=== PATIENT | female | born 1965 | race Caucasian/White ===

== ENCOUNTER 2017-01-02 07:30 | Inpatient (IN) | payer OTHER ==
[~2017-01-02] VITALS: Ht 170.2 cm; Wt 72.6 kg
[~2017-01-02 07:30] MED LIST: FURO-570 PO; HYDR-4446 PO; LACT10SO1 PO; MIDO5TAB PO; SPIR50TA PO
[2017-01-02 07:35] VITALS: BP 89/49
--- NOTE | 2017-01-02 07:50 | NUR ---
Patient ambulated to ER bed #7.
[2017-01-02] MEDS ORDERED: ONDANSETRON 4 MG/2 ML VIAL IVP ONE (08:05)
[2017-01-02] MEDS ORDERED: MORPHINE SULFATE 4 MG/ML SYR IVP ONE (08:05)
--- NOTE | 2017-01-02 08:10 | NUR ---
51/F bib c/o ascites-increased nausea, decreased appetite, difficult to walk. Patient states she had her last paracentesis >1 month ago. Pain 7/10 abdominal non-radiating. AAOX4, PERRLA. Breathing even and unlabored. ERMD notified of patient status.
--- NOTE | 2017-01-02 08:15 | NUR ---
Patient being evaluated by physician at bedside.
[2017-01-02 08:31] LABS: HEMATOCRIT 25.2 % (36-48); HEMOGLOBIN 8.7 g/dL (12.0-16.0); MEAN CORPUSCULAR HEMOGLOBIN 32 pg (27-31); MEAN CORPUSCULAR HGB CONC 34 g/dL (33-37); MEAN CORPUSCULAR VOLUME 92 fL (80-94); PLATELET COUNT (AUTO) 37 K/uL (140-450); RED BLOOD CELL COUNT(AUTO) 2.73 MIL/uL (4.20-5.40); RED CELL DISTRIBUTION WIDTH 13.6 % (11.6-13.7); WHITE BLOOD COUNT (AUTO) 3.1 K/uL (4.8-10.8)
[2017-01-02 08:45] LABS: ALBUMIN 2.5 g/dL (3.4-5.0); ANION GAP 13.6 (8-16); CALCIUM 8.2 mg/dL (8.5-10.1); CARBON DIOXIDE 22.5 mmol/L (21-32); CREATININE 2.5 mg/dL (0.6-1.3); POTASSIUM 4.1 mmol/L (3.5-5.1); TOTAL BILIRUBIN 0.7 mg/dL (0.0-1.0); TOTAL PROTEIN, SERUM 6.7 g/dL (6.4-8.2)
--- NOTE | 2017-01-02 09:15 | NUR ---
PT RESTING. VSS; PATIENT POSITIONED FOR COMFORT; HOB ELEVATED; BEDRAILS UP X2; BED DOWN. ER MD MADE AWARE OF PT STATUS.
[2017-01-02 09:20] LABS: BAND % (MANUAL) 1 % (0-8); EOSINOPHILS % (MANUAL) 2 % (0-4); LYMPHOCYTES % (MANUAL) 15 % (20-46); MONOCYTES % (MANUAL) 11 % (5-12); NEUTROPHILS % (MANUAL) 71 (43-65)
[2017-01-02 09:21] LABS: OVALOCYTES 1+; PLATELET ESTIMATE DECREASED
--- NOTE | 2017-01-02 09:30 | NUR ---
PT TAKEN TO CT BY RADIOLGY TECH VIA WHEELCAIR.
[2017-01-02 09:33] LABS: INR 1.7 (0.8-1.2)
--- NOTE | 2017-01-02 09:37 | NUR ---
PT RETURNED FROM RADIOLOGY VIA WHEELCHAIR WITH MATCHING MACHINE OPERATOR.
[2017-01-02] MEDS ORDERED: NACL 0.9% 500 ML IV ONE (09:55)
--- NOTE | 2017-01-02 10:36 | NUR ---
PT RESTING. VSS; PATIENT POSITIONED FOR COMFORT; HOB ELEVATED; BEDRAILS UP X2; BED DOWN. ER MD MADE AWARE OF PT STATUS.
--- NOTE | 2017-01-02 11:02 | NUR ---
Patient will be admitted to care of DR. BARRON. Admited to MED SURG. Will go to room 109B. Belongings list completed. Report to JUAN FOSTER.
[2017-01-02 11:30] VITALS: BP 90/52
--- NOTE | 2017-01-02 11:30 | NUR ---
RECEIVED PT ON UNIT, PT IS A/OX4, AMBULATORY, IV IS ON THE LEFT AC, PATENT, INTACT, FLUSHING WELL, SKIN IS INTACT, NO S/S OF RESPIRATORY DISTRESS OR DISCOMFORT NOTED, INITIAL ASSESSMENT DONE, DISCUSSED PLAN OF CARE WITH PT, PT VERBALIZED UNDERSTANDING, ORIENTED PT TO ROOM, CALL LIGHT IS WITHIN REACH, WILL CONTINUE TO MONITOR.
--- NOTE | 2017-01-02 12:09 | NUR ---
PAGED DR. BARRON FOR ADMISSION ORDERS.
--- NOTE | 2017-01-02 12:15 | NUR ---
RECEIVED A CALL BACK FROM DR. BARRON, PER DR. BARRON SHE WOULD BE ON HER WAY TO [facility] IN APPROX. 2O MIN AND WOULD PLACE ORDERS ONCE SHE WAS AT THE HOSPITAL.
[2017-01-02 12:40] LABS: APPEARANCE,URINE HAZY (CLEAR); BILIRUBIN,URINE NEGATIVE (NEGATIVE); BLOOD, URINE 2+ (NEGATIVE); COLOR,URINE YELLOW (YELLOW); LEUKOCYTE ESTERASE ,URINE NEGATIVE (NEGATIVE); NITRITE, URINE NEGATIVE (NEGATIVE); PROTEIN,URINE NEGATIVE (NEGATIVE); UGLUCOSE NEGATIVE (NEGATIVE); UROBILINOGEN,URINE 0.2 EU/dL (0.2 - 1)
[2017-01-02] MEDS ORDERED: ALBUTEROL 0.083% 2.5 MG/3 ML NEBU IH PRN (12:45)
[2017-01-02] MEDS ORDERED: LORazepam 2 MG/ML VIAL IVP PRN (12:45)
[2017-01-02] MEDS ORDERED: ACETAMINOPHEN 325 MG TAB PO PRN (12:45)
[2017-01-02] MEDS ORDERED: MORPHINE SULFATE 2 MG/ML SYR IVP PRN (12:45)
[2017-01-02 12:58] LABS: RBC,URINE 30-40 /HPF (0-5)
[2017-01-02 12:59] LABS: BACTERIA,URINE 1+ /HPF (None Seen)
--- NOTE | 2017-01-02 15:27 | NUR ---
CALLED LAB TO REQUEST THE FROZEN PLASMA. WAS TOLD IT WOULD BE READY IN APPROX. 40 MIN.
[2017-01-02 16:00] VITALS: BP 78/42
--- NOTE | 2017-01-02 17:20 | NUR ---
RECEIVED PHONE CALL FROM LAB LETTING ME KNOW PLASMA WAS READY TO BE PICKED UP.
--- NOTE | 2017-01-02 17:36 | NUR ---
FROZEN PLASMA HUNG AND INITIATED, NO S/S OF RESPIRATORY DISTRESS OR DISCOMFORT NOTED, CALL LIGHT IS WITHIN REACH, WILL CONTINUE TO MONITOR.
--- NOTE | 2017-01-02 17:51 | NUR ---
PT RESTING IN BED, WATCHING TV, NO S/S OF RESPIRATORY DISTRESS OR DISCOMFORT NOTED, CALL LIGHT WITHIN REACH, WILL CONTINUE TO MONITOR.
--- NOTE | 2017-01-02 19:20 | NUR ---
ENDORSED PT TO NIGHTSHIFT NURSE FOR CONTINUITY OF CARE. PT STABLE AT THIS TIME.
--- NOTE | 2017-01-02 19:30 | NUR ---
ASSUMED CARE OF PATIENT, AWAKE, ALERT AND ORIENTED FIRST UNIT OF FFP. VITAL SIGNS STABLE. NO COMPLAINS. CALL LIGHT WITHIN REACH.
--- NOTE | 2017-01-02 19:55 | NUR ---
PLAN OF CARE DISCUSSED WITH PATIENT, VERBALIZED UNDERSTANDING WELL. FIRST UNIT OF FFP, INFUSED. NO TRANSFUSION REACTION NOTED. AFEBRILE. VITAL SIGNS STABLE. CALL LIGHT WITHIN REACH.
--- NOTE | 2017-01-02 20:15 | NUR ---
SECOND UNIT OF FFP STARTED. CALL LIGHT WITHIN REACH.
[2017-01-02] MEDS: MIDODRINE 5 MG TAB PO SCH (20:44)
--- NOTE | 2017-01-02 21:55 | NUR ---
SECOND UNIT OF PRBC COMPLETED. NO TRANSFUSION REACTION NOTED. CALL LIGHT WITHIN REACH.
[2017-01-02 22:15] VITALS: BP 88/46
[2017-01-02] MEDS: HYDROcodone/APAP 5/325 MG 1 TAB TAB PO PRN (23:13)
[2017-01-03 00:17] VITALS: BP 84/48
--- NOTE | 2017-01-03 00:23 | NUR ---
SLEEPING WELL. NO COMPLAINS. CALL LIGHT WITHIN REACH.
[2017-01-03] MEDS: MIDODRINE 5 MG TAB PO SCH ×3 (05:20→20:34)
[2017-01-03 06:44] LABS: ALBUMIN 2.3 g/dL (3.4-5.0); ANION GAP 13.5 (8-16); CARBON DIOXIDE 23.8 mmol/L (21-32); CREATININE 1.5 mg/dL (0.6-1.3); MAGNESIUM 1.7 mg/dL (1.8-2.4); POTASSIUM 4.3 mmol/L (3.5-5.1); TOTAL PROTEIN, SERUM 6.1 g/dL (6.4-8.2)
--- NOTE | 2017-01-03 07:13 | NUR ---
ENDORSED CARE AT BEDSIDE WITH MIRACLE MARTINEZ, PATIENT IN STABLE CONDITION.
--- NOTE | 2017-01-03 07:20 | NUR ---
RECEIVED REPORT FROM NOC.PT IS ASLEEP BUT AROUSABLE.. IV INTACT NO SX OF DISTRESS AT THIS TIME.
[2017-01-03 07:29] LABS: MEAN CORPUSCULAR HEMOGLOBIN 32 pg (27-31); MEAN CORPUSCULAR VOLUME 93 fL (80-94)
[2017-01-03 07:31] LABS: HEMATOCRIT 23.4 % (36-48); MEAN CORPUSCULAR HGB CONC 34 g/dL (33-37); RED BLOOD CELL COUNT(AUTO) 2.52 MIL/uL (4.20-5.40); RED CELL DISTRIBUTION WIDTH 13.5 % (11.6-13.7); WHITE BLOOD COUNT (AUTO) 3.1 K/uL (4.8-10.8)
[2017-01-03 07:34] LABS: PLATELET COUNT (AUTO) 31 K/uL (140-450)
--- NOTE | 2017-01-03 07:48 | NUR ---
RECEIVED LAB REPORT PLATELETS AT [address]. CALL[address] BARRON OFFICE. AWAITING TO CALL BACK.
--- NOTE | 2017-01-03 07:57 | NUR ---
PATIENT HAS BEEN SCREENED AND CATEGORIZED MODERATE NUTRITION RISK. PATIENT WILL BE SEEN WITHIN 3-5 DAYS OF ADMISSION. 01/05/17-01/07/[address]
[2017-01-03 08:00] VITALS: BP 80/65
[2017-01-03] MEDS ORDERED: MAG SULF 2000 MG/WATER PREMIX 50 ML IV SCH (08:36)
[2017-01-03 08:39] LABS: BASOPHILS % (MANUAL) 1 % (0-2); EOSINOPHILS % (MANUAL) 2 % (0-4); LYMPHOCYTES % (MANUAL) 14 % (20-46); MONOCYTES % (MANUAL) 15 % (5-12); NEUTROPHILS % (MANUAL) 68 (43-65); PLATELET ESTIMATE ADEQUATE
[2017-01-03 08:40] LABS: HYPOCHROMASIA 1+
[2017-01-03 09:01] LABS: INR 1.7 (0.8-1.2); PARTIAL THROMBOPLASTIN TIME 33.4 secs (22-35.6); PROTHROMBIN TIME 16.2 secs (10.8-13.4)
--- NOTE | 2017-01-03 09:38 | NUR ---
ADMINISTERED MAG RIDER ORDERED.
--- NOTE | 2017-01-03 10:47 | NUR ---
CM NOTE INITIAL REVIEW SENT TO [facility] FAX# [phone] [place] [phone]
--- NOTE | 2017-01-03 11:06 | NUR ---
FOLLOW UP CALL MADE SPOKE WITH KAYLEY IN THE RADIOLOGY. US WILL BE DONE TODAY FOR FLUID ASSESSMENT. SHE WILL CALL SN WHAT TIME PARACENTESIS WILL BE DONE
--- NOTE | 2017-01-03 12:30 | NUR ---
DR REYES SEEN PATIENT. ORDERED TO TRANFUSE ALBUMIN 100 ML BID. WILL START ONCE AVAILABLE. PATIENT NOTIFIED AND AGREED ON THE POC
[2017-01-03] MEDS: ONDANSETRON 4 MG/2 ML VIAL IVP PRN ×2 (12:37→20:31)
--- NOTE | 2017-01-03 12:41 | NUR ---
NAUSEA REPORTED BBY THE PATIENT. ADMINISTERED ZOFRAN ORDERED VIA IVP
--- NOTE | 2017-01-03 12:45 | NUR ---
SPOKE WITH RADIOLOGY. THEY ARE UNABLE TO PERFORM PARACENTESIS TODAY DUE TO LOW PLATELET COUNT. GOAL TO PERFORM PARACENTESIS IS AT LEAST [address]. PAG[address] BURCH. SPOKE WITH SELENA. PATIENT MADE AWARE
--- NOTE | 2017-01-03 13:23 | NUR ---
SPOKE WITH DR BURCH. NOTIFIED RE: GOAL FOR PLATELET AT 50 BEFORE PARACENTESIS TO BE MADE. MD ORDERED FOR 1 UNIT OF PLATELET PHERESIS AND TO REPEAT CBC 2 HOURS POST TRANSFUSION. CONSENT IN PLACE. CONTACTED RADIOLOGY TO NOTIFY ON THE PLAN .
--- NOTE | 2017-01-03 13:40 | NUR ---
ROUNDS MADE. NO REPORT OF NAUSEA AND VOMITING AT THIS TIME
--- NOTE | 2017-01-03 14:30 | NUR ---
MADE ROUNDS. PT IS ASLEEP
[2017-01-03] MEDS: ALBUMIN HUMAN 25% 100 ML IV SCH ×2 (14:40→21:17)
[2017-01-03 16:00] VITALS: BP 82/50
--- NOTE | 2017-01-03 16:00 | NUR ---
ALBUMIN FINISHED, NO ADVERSE REACTION. PT IS AWAKE ANDOREINTED
--- NOTE | 2017-01-03 16:13 | NUR ---
FOLLOW UP MADE ON THE PLATELETS AVAILABILITY. PLATELETS WILL BE ORDERED IN THE BLOOD BANK PER MS REYNOLDS. AWAITING
--- NOTE | 2017-01-03 17:45 | NUR ---
STARTED PATIENT ON PLATELET PHARESIS. SEE NOTES
[2017-01-03] MEDS: NACL 0.9% 500 ML IV SCH ×2 (18:17→21:15)
--- NOTE | 2017-01-03 18:39 | NUR ---
FINISHED PLATELETS TRANSFUSION WITHOUT ANY INTERACTION. PT IS AWAKE ORIENTED. VS RECORDED.
[2017-01-03] MEDS ORDERED: PHYTONADIONE 10 MG/ML AMP SUBQ SCH (18:50)
--- NOTE | 2017-01-03 19:12 | NUR ---
CONSENTS SIGNED FOR EGD. EDUCATED PT ON PROCEDURE TOMORROW. NPO AFTER MIDNIGHT SIGN IN PLACE. PENDING FOR STOOL OB. NO TRANSFUSION REACTION NOTED.
--- NOTE | 2017-01-03 19:32 | NUR ---
ENDORSED TO NURSE ALLEN FOR CONT OF CARE. PT IS EATING .NO DISTRESS AT THIS TIME
--- NOTE | 2017-01-03 19:33 | NUR ---
RECD. SITTING ON BED, EATING DINNER. AWAKE, A/OX4. RESPIRATION EVEN AND UNLABORED. IV OF NS AT 80 ML/HR INFUSING LEFT AC G22. ABDOMEN DISTENDED, WITH FAINT BOWEL SOUNDS NOTED ON ALL QUADRANTS. ON BILATERAL LEG SEQUENTIALS. PLAN OF CARE FOR THE SHIFT DISCUSSED. VERBALIZED UNDERSTANDING. DENIES PAIN 0/10.
--- NOTE | 2017-01-03 20:00 | NUR ---
Patient's Plan of Care was discussed and reviewed with CMM PROGRAMMER: ALEJNADRO VALDEZ
--- NOTE | 2017-01-03 20:31 | NUR ---
NAUSEATED, MEDICATED WITH ZOFRAN BY JUAN MENDOZA.
[2017-01-03] MEDS: HYDROcodone/APAP 5/325 MG 1 TAB TAB PO PRN (20:33)
[2017-01-03] MEDS: LACTULOSE 20 GM/30 ML UDC PO SCH (20:34)
--- NOTE | 2017-01-03 21:00 | NUR ---
RESTING COMFORTABLY IN BED, NO NAUSEA NOTED.
--- NOTE | 2017-01-03 21:30 | NUR ---
CONVERSING WITH AT THE BEDSIDE.
--- NOTE | 2017-01-03 22:00 | NUR ---
INSTRUCTED TO CALL NURSE WHEN HAVING BM FOR STOOL OCCULT BLOOD TEST. VERBALIZED UNDERSTANDING.
[2017-01-03 22:07] LABS: HEMATOCRIT 24.2 % (36-48); HEMOGLOBIN 8.1 g/dL (12.0-16.0); MEAN CORPUSCULAR HEMOGLOBIN 31 pg (27-31); MEAN CORPUSCULAR HGB CONC 33 g/dL (33-37); MEAN CORPUSCULAR VOLUME 94 fL (80-94); PLATELET COUNT (AUTO) 55 K/uL (140-450); RED BLOOD CELL COUNT(AUTO) 2.57 MIL/uL (4.20-5.40); RED CELL DISTRIBUTION WIDTH 13.6 % (11.6-13.7); WHITE BLOOD COUNT (AUTO) 2.8 K/uL (4.8-10.8)
[2017-01-03 22:17] LABS: BAND % (MANUAL) 28 % (0-8); HYPOCHROMASIA 1+; LYMPHOCYTES % (MANUAL) 8 % (20-46); MONOCYTES % (MANUAL) 2 % (5-12); NEUTROPHILS % (MANUAL) 62 (43-65); PLATELET ESTIMATE DECREASED
--- NOTE | 2017-01-03 23:45 | NUR ---
AWARE OF NPO PAST MIDNIGHT FOR EGD TOMORROW.
[2017-01-04] VITALS: BP 92/59
--- NOTE | 2017-01-04 05:00 | NUR ---
AMBULATED TO BR TO HAVE BM. FEELS DIZZY, ASSISTED BACK TO BED, BP CHECKED - 84/50. SAFETY MAINTAINED.
[2017-01-04] MEDS: MIDODRINE 5 MG TAB PO SCH ×3 (05:51→20:24)
[2017-01-04] MEDS: HYDROcodone/APAP 5/325 MG 1 TAB TAB PO PRN ×2 (05:51→19:02)
--- NOTE | 2017-01-04 05:51 | NUR ---
MEDICATED WITH PROAMATINE ORDERED. STOOL FOR OCCULT BLOOD SENT TO LAB.
[2017-01-04 06:27] LABS: ANION GAP 11.9 (8-16); CALCIUM 8.3 mg/dL (8.5-10.1); CARBON DIOXIDE 25.6 mmol/L (21-32); CREATININE 1.2 mg/dL (0.6-1.3); POTASSIUM 4.5 mmol/L (3.5-5.1)
[2017-01-04 06:33] LABS: PHOSPHORUS 3.1 mg/dL (2.5-4.9)
--- NOTE | 2017-01-04 07:15 | NUR ---
RESTING COMFORTABLY SLEEPING IN BED. CONDITION REMAIN STABLE. ENDORSED TO JUAN GARLAND FOR BP MONITORING AND CONTINUITY OF CARE.
[2017-01-04] MEDS: NACL 0.9% 500 ML IV SCH ×4 (07:16→21:01)
--- NOTE | 2017-01-04 07:18 | NUR ---
RECEIVED REPORT FROM NIGHT RN. PT RESTING IN BED. NO S/S OF ACUTE DISTRESS. AAOX4. IV SITE PATENT AND INTACT. ABDOMINAL DISTENTION NOTED. PT DENIES PAIN. CALL LIGHT WITHIN REACH. SAFETY MEASURES ENSURED. WILL CONTINUE TO MONITOR.
[2017-01-04 07:23] LABS: HEMATOCRIT 24.3 % (36-48); HEMOGLOBIN 8.4 g/dL (12.0-16.0); MEAN CORPUSCULAR HEMOGLOBIN 32 pg (27-31); MEAN CORPUSCULAR HGB CONC 35 g/dL (33-37); MEAN CORPUSCULAR VOLUME 93 fL (80-94); PLATELET COUNT (AUTO) 55 K/uL (140-450); RED BLOOD CELL COUNT(AUTO) 2.62 MIL/uL (4.20-5.40); RED CELL DISTRIBUTION WIDTH 13.8 % (11.6-13.7); WHITE BLOOD COUNT (AUTO) 3.5 K/uL (4.8-10.8)
[2017-01-04 08:11] VITALS: BP 84/45
[2017-01-04 08:26] LABS: LYMPHOCYTES % (MANUAL) 13 % (20-46); MONOCYTES % (MANUAL) 15 % (5-12); NEUTROPHILS % (MANUAL) 72 (43-65); PLATELET ESTIMATE DECREASED
[2017-01-04] MEDS: LACTULOSE 20 GM/30 ML UDC PO SCH ×2 (08:40→20:24)
--- NOTE | 2017-01-04 10:04 | NUR ---
PT RESTING IN BED. NO S/S OF ACUTE DISTRESS. PT DENIES PAIN. CALL LIGHT WITHIN REACH. SAFETY MEASURES ENSURED. WILL CONTINUE TO MONITOR.
[2017-01-04 10:10] LABS: HEPATITIS B SURFACE ANTIGEN Negative (Negative); HEPATITIS C VIRUS ANTIBODY <0.1 s/co ratio (0.0-0.9)
[2017-01-04] MEDS ORDERED: fentaNYL 0.05 MG/ML VIAL ONE (10:15)
[2017-01-04] MEDS ORDERED: MIDAZOLAM 2 MG/2 ML VIAL ONE (10:15)
[2017-01-04] MEDS ORDERED: diphenhydrAMINE 50 MG/ML VIAL ONE (10:16)
[2017-01-04 10:23] LABS: INR 1.8 (0.8-1.2)
--- NOTE | 2017-01-04 10:24 | NUR ---
PT TAKEN OFF UNIT TO OR.
[2017-01-04] MEDS: MIDAZOLAM 2 MG/2 ML VIAL IVP ONE ×2 (10:42→12:10)
[2017-01-04] MEDS: fentaNYL 0.05 MG/ML VIAL IVP ONE ×2 (10:44→12:10)
[2017-01-04] MEDS: diphenhydrAMINE 50 MG/ML VIAL IVP SCH ×2 (11:02→11:44)
[2017-01-04] MEDS ORDERED: ALBUMIN HUMAN 5 % 250 ML IV ONE (11:30)
--- NOTE | 2017-01-04 11:54 | NUR ---
CM NOTE CONCURRENT REVIEW SENT TO [facility] FAX# [phone] [place] [phone]
[2017-01-04 12:00] VITALS: BP 84/44
--- NOTE | 2017-01-04 12:00 | NUR ---
PT BACK ON UNIT. NO S/S OF ACUTE DISTRESS. PT DENIES PAIN. IV SITE PATENT AND INTACT. CALL LIGHT WITHIN REACH. SAFETY MEASURES ENSURED. WILL CONTINUE TO MONITOR.
[2017-01-04 12:45] LABS: SPECIMENTYPE,BODY FLUID ASCITES
[2017-01-04 12:46] LABS: APPEARANCE,UNSPUN,BODY FLUID CLEAR (CLEAR); COLOR,BODY FLUID LT YELLOW (LT YELLOW)
[2017-01-04 12:47] LABS: TOTAL VOLUME,BODY FLUID 1100 mL
[2017-01-04 13:25] LABS: APPEARANCE,SPUN,BODY FLUID CLEAR (CLEAR)
[2017-01-04 13:28] LABS: GLUCOSE,BODY FLUID 110 mg/dL
[2017-01-04 13:43] LABS: RBC, BODY FLUID 32 /cu. mm.; WBC, BODY FLUID 81 /cu. mm.
[2017-01-04 13:44] LABS: MONONUCLEAR, BODY FLUID 86 %; POLYNUCLEAR, BODY FLUID 14 %
--- NOTE | 2017-01-04 14:57 | NUR ---
PT UP TO BATHROOM WITH STEADY GAIT, APPEARS IN NAD, PT DENIES PAIN OR DISCOMFORT AT THIS TIME, PT RETURNED TO BED, CALL CURRY WITHIN REACH, BED LOCKED IN LOW POSITION, WILL CONTINUE TO MONITOR
--- NOTE | 2017-01-04 16:25 | NUR ---
PT RESTING IN BED. NO S/S OF ACUTE DISTRESS. PT DENIES PAIN. CALL LIGHT WITHIN REACH. SAFETY MEASURES ENSURED. WILL CONTINUE TO MONITOR.
[2017-01-04 16:40] VITALS: BP 87/51
[2017-01-04] MEDS: ONDANSETRON 4 MG/2 ML VIAL IVP PRN (19:02)
--- NOTE | 2017-01-04 19:09 | NUR ---
ENDORSED PLAN OF CARE TO NIGHT RN. PT REMAINS IN STABLE CONDITION.
--- NOTE | 2017-01-04 19:10 | NUR ---
RECD. RESTING IN BED, AWAKE, A/OX4. RESPIRATION EVEN AND UNLABORED. IV OF NS AT 80 ML/HR INFUSING, LEFT AC G 22. DECREASED ABDOMINAL DISTENTION NOTED. BACK PAIN 01/25, WAS JUST MEDICATED BY AM NURSE. WILL CONTINUE TO MONITOR PAIN. ON BILATERAL LEG SEQUENTIALS. PLAN OF CARE FOR THE SHIFT DISCUSSED. INSTRUCTED TO CALL NURSE WHEN GETTING OUT OF BED FOR ASSISTANCE DUE TO LOW BP, VERBALIZED UNDERSTANDING. FAMILY AT THE BEDSIDE.
--- NOTE | 2017-01-04 20:00 | NUR ---
Patient's Plan of Care was discussed and reviewed with DEPUTY [place] MARSHAL: ALEJANDRO VALDEZ
--- NOTE | 2017-01-04 20:24 | NUR ---
RESTING IN BED, DUE PO MEDICATIONS GIVEN, AT THE BEDSIDE.
--- NOTE | 2017-01-04 21:44 | NUR ---
INFORMED DR. WEN BOOTH, PATIENT IS COMPLAINING OF SORENESS IN THE THROAT, ORDERED LOSENGES.
[2017-01-04] MEDS: BENZOCAINE/MENTHOL 1 LOZ MM PRN (22:49)
--- NOTE | 2017-01-04 22:49 | NUR ---
SITTING ON BED DOING CROSSWORD PUZZLE, MEDICATED WITH CEPACOL FOR SORE THROAT ORDERED.
--- NOTE | 2017-01-04 23:49 | NUR ---
STATED DECREASED PAIN IN THE THROAT.
[2017-01-05] VITALS: BP 93/43
--- NOTE | 2017-01-05 00:30 | NUR ---
STILL AWAKE IN BED, ENCOURAGED TO GO BACK TO SLEEP.
[2017-01-05] MEDS: HYDROcodone/APAP 5/325 MG 1 TAB TAB PO PRN ×2 (00:49→05:54)
--- NOTE | 2017-01-05 04:00 | NUR ---
SLEEPING COMFORTABLY IN BED.
[2017-01-05] MEDS: MIDODRINE 5 MG TAB PO SCH ×2 (05:54→13:49)
[2017-01-05] MEDS: BENZOCAINE/MENTHOL 1 LOZ MM PRN ×2 (05:57→11:27)
[2017-01-05 06:46] LABS: HEMATOCRIT 22.1 % (36-48); HEMOGLOBIN 7.7 g/dL (12.0-16.0); MEAN CORPUSCULAR HEMOGLOBIN 32 pg (27-31); MEAN CORPUSCULAR HGB CONC 35 g/dL (33-37); MEAN CORPUSCULAR VOLUME 93 fL (80-94); PLATELET COUNT (AUTO) 48 K/uL (140-450); RED BLOOD CELL COUNT(AUTO) 2.38 MIL/uL (4.20-5.40); RED CELL DISTRIBUTION WIDTH 13.8 % (11.6-13.7); WHITE BLOOD COUNT (AUTO) 3.2 K/uL (4.8-10.8)
[2017-01-05 06:53] LABS: CARBON DIOXIDE 25.9 mmol/L (21-32); POTASSIUM 3.9 mmol/L (3.5-5.1)
--- NOTE | 2017-01-05 06:54 | NUR ---
CONDITION REMAIN STABLE. WILL ENDORSE TO AM NURSE FOR CONTINUITY OF CARE.
--- NOTE | 2017-01-05 07:25 | NUR ---
ENDORSED TO Christa DUBON FOR CONTINUITY OF CARE.
[2017-01-05 07:30] LABS: EOSINOPHILS % (MANUAL) 2 % (0-4); LYMPHOCYTES % (MANUAL) 22 % (20-46); MONOCYTES % (MANUAL) 20 % (5-12); NEUTROPHILS % (MANUAL) 56 (43-65)
--- NOTE | 2017-01-05 07:30 | NUR ---
RECEIVED REPORT FROM JANETT ALLEN, PT IS A/OX4, AMBULATORY, IV IS ON THE LEFT UPPER ARM, PATENT, INTACT, FLUSHING WELL, PT HAS A BAND AID ON LEFT SIDE OF THE ABDOMEN, PT IS POST PARACENTESES 01/04/17, NO S/S OF RESPIRATORY DISTRESS OR DISCOMFORT NOTED, DISCUSSED PLAN OF CARE WITH PT, PT VERBALIZED UNDERSTANDING, CALL LIGHT IS WITHIN REACH, WILL CONTINUE TO MONITOR.
[2017-01-05 07:31] LABS: PLATELET ESTIMATE DECREASED
[2017-01-05] MEDS: NACL 0.9% 500 ML IV SCH (07:49)
[2017-01-05 08:00] VITALS: BP 88/47
[2017-01-05] MEDS: LACTULOSE 20 GM/30 ML UDC PO SCH ×3 (08:37→17:44)
[2017-01-05] MEDS: ONDANSETRON 4 MG/2 ML VIAL IVP PRN ×2 (08:38→13:53)
--- NOTE | 2017-01-05 08:47 | NUR ---
DUE MEDICATIONS GIVEN, PT TOLERATED WELL, CALL LIGHT IS WITHIN REACH, WILL CONTINUE TO MONITOR.
[2017-01-05] MEDS ORDERED: MIDO10TA PO (08:51)
[2017-01-05] MEDS ORDERED: ONDA4TAB PO (08:52)
[2017-01-05 10:06] LABS: HEMATOCRIT 22.4 % (36-48); HEMOGLOBIN 7.5 g/dL (12.0-16.0)
--- NOTE | 2017-01-05 10:11 | NUR ---
CM NOTE CONCURRENT REVIEW SENT TO [facility] FAX# [phone] [place] [phone]
--- NOTE | 2017-01-05 11:00 | NUR ---
BLOOD TRANSFUSION INITIATED, PT TOLERATED WELL, NO S/S OF RESPIRATORY DISTRESS OR DISCOMFORT NOTED, CALL LIGHT WITHIN REACH, WILL CONTINUE TO MONITOR.
[2017-01-05] MEDS ORDERED: HYDROcodone/APAP 5/325 MG 1 TAB TAB PO PRN (11:05)
--- NOTE | 2017-01-05 13:00 | NUR ---
PT RESTING IN BED, WATCHING TV, CALL LIGHT IS WITHIN REACH.
--- NOTE | 2017-01-05 14:35 | NUR ---
PT BLOOD TRANSFUSION COMPLETED, PT TOLERATED WELL, NO REACTIONS, NO S/S OF RESPIRATORY DISTRESS OR DISCOMFORT NOTED, CALL LIGHT WITHIN REACH, WILL CONTINUE TO MONITOR, CALL LIGHT WITHIN REACH.
--- NOTE | 2017-01-05 15:00 | NUR ---
PT SLEEPING AT THIS TIME, CALL LIGHT WITHIN REACH, WILL CONTINUE TO MONITOR.
[2017-01-05 16:00] VITALS: BP 89/56
[2017-01-05 16:50] LABS: HEMATOCRIT 30.1 % (36-48); HEMOGLOBIN 10.1 g/dL (12.0-16.0)
[2017-01-05] MEDS ORDERED: FERROUS SULFATE 325 MG TABEC PO SCH (17:00)
--- NOTE | 2017-01-05 17:00 | NUR ---
INFORMED THE PT DR. BARRON HAD PUT IN AN ORDER FOR DISCHARGE SINCE HER H/H HAD INCREASED AFTER THE BLOOD TRANSFUSION, PT VERBALIZED UNDERSTANDING.
--- NOTE | 2017-01-05 19:31 | NUR ---
PATIENT IN CHAIR DRESSED TO GO HOME, REFUSED RESP. ASSESSMENT AND O2SAT
--- NOTE | 2017-01-05 19:32 | NUR ---
PT DISCHARGED HOME, RX GIVEN TO PT, DISCHARGE INSTRUCTIONS GIVEN, REMOVED ID WRIST BAND, REMOVED IV, CATHETER TIP INTACT.
[2017-01-06] MEDS ORDERED: SPIRONOLACTONE 50 MG TAB PO SCH (09:00)
[2017-01-06] MEDS ORDERED: FOLIC ACID 1 MG TAB PO SCH (09:00)
[2017-01-06] MEDS ORDERED: PANTOPRAZOLE 40 MG TABEC PO SCH (09:00)
== END 2017-01-05 19:35 | disposition home or self-care (01) | DRG 280 ==
LOC: MED 07:30 → MTU 10:48
PROVIDERS: ADMIT Hospitalist; ATTEND Hospitalist
PROC: 30233K1 Transfusion of Nonautologous Frozen Plasma into Peripheral Vein, Percutaneous Approach (ICD-10-PCS; principal; 2017-01-02)
PROC: 30233L1 Transfusion of Nonautologous Fresh Plasma into Peripheral Vein, Percutaneous Approach (ICD-10-PCS; 2017-01-02)
PROC: 30233R1 Transfusion of Nonautologous Platelets into Peripheral Vein, Percutaneous Approach (ICD-10-PCS; 2017-01-03)
PROC: 0W9G30Z Drainage of Peritoneal Cavity with Drainage Device, Percutaneous Approach (ICD-10-PCS; 2017-01-04)
PROC: 0DB68ZX Excision of Stomach, Via Natural or Artificial Opening Endoscopic, Diagnostic (ICD-10-PCS; 2017-01-04)
PROC: 30233N1 Transfusion of Nonautologous Red Blood Cells into Peripheral Vein, Percutaneous Approach (ICD-10-PCS; 2017-01-05)
DX: K70.31 Alcoholic cirrhosis of liver with ascites (principal); N17.9 Acute kidney failure, unspecified; D61.818 Other pancytopenia; D68.4 Acquired coagulation factor deficiency; K85.90 Acute pancreatitis without necrosis or infection, unspecified; I95.9 Hypotension, unspecified; K29.00 Acute gastritis without bleeding; D68.9 Coagulation defect, unspecified; K76.6 Portal hypertension; F10.21 Alcohol dependence, in remission; R79.89 Other specified abnormal findings of blood chemistry; E46 Unspecified protein-calorie malnutrition; I85.00 Esophageal varices without bleeding; K31.89 Other diseases of stomach and duodenum; N18.9 Chronic kidney disease, unspecified; K42.9 Umbilical hernia without obstruction or gangrene; D69.59 Other secondary thrombocytopenia; K72.90 Hepatic failure, unspecified without coma; Z90.710 Acquired absence of both cervix and uterus; Z88.6 Allergy status to analgesic agent; Z79.899 Other long term (current) drug therapy; Z91.14 Patient's other noncompliance with medication regimen; Z68.25 Body mass index [BMI] 25.0-25.9, adult
CPT/HCPCS: 36415; 76705; 80048; 80053; 81001; 81025; 82140; 82150; 82272; 82945; 83690; 83735; 84100; 84703; 85018; 85025; 85610; 85730; 86677; 86803; 86886; 86900; 86901; 86920; 87070; 87075; 87081; 87086; 87205; 87340; 93005; 96361; 96374; 96375; 99285; J0690; J1200; J2250; J2270; J2405; J3010; J3430; J3475; J7030; J7060; P9016; P9017; P9035; P9046; Q0092